=== PATIENT | female | born 1965 | race Two or more races ===

== ENCOUNTER 2017-09-13 11:15 | Emergency (ER) | payer OTHER ==
[2017-09-13 11:38] VITALS: BP 112/53; PULSE 111; TEMP 98.3; BMI 25.6
[2017-09-13] MEDS ORDERED: KETOROLAC TROMETHAMINE 60 MG/2 ML VIAL ONE (12:03)
--- NOTE | 2017-09-13 12:11 | PDOC ---
History of Present Illness - General Chief Complaint: Back Pain Stated Complaint: REVISIT/ BACK PAIN Time Seen by Provider: 09/13/17 11:42 - History of Present Illness Initial Comments: 09/13/17 12:06 CHIEF COMPLAINT: 52 y/o afebrile female with PMH IDDM, HTN, depression, chronic back pain with sciatica c/o worsened right sided back pain. HISTORY OF PRESENT ILLNESS: The patient states the right side of her back is in pain and it's radiating down her right leg. She reports that her pain mgmt doctor is Dr. Leighton Vivar and that she has an MRI scheduled in this hospital for 1 pm. She was given multiple pain medications but the only thing that helps her is Toradol. She denies recent/new fall/trauma to back, saddle anesthesia, bowel /bladder incontinence, numbness/tingling in LEs. Vital signs on arrival are notable for pulse of 99 and pulse ox of 96% on RA. REVIEW OF SYSTEMS: GENERAL/CONSTITUTIONAL: No fever/chills. No weakness. No weight change. GENITOURINARY: No dysuria, frequency, or change in urination. MUSCULOSKELETAL: +low back pain. No joint or muscle swelling or pain. No neck pain. SKIN: No rash or easy bruising. NEUROLOGIC: No headache, vertigo, loss of consciousness, or loss of sensation. PHYSICAL EXAM: GENERAL: The patient is awake, alert, and fully oriented, in no acute distress. She is ambulatory. BACK: No midline lumbar spine TTP or step offs. TTP of right lumbar paravertebral muscles. EXTREMITIES: Normal range of motion, no edema. NEUROLOGICAL: Normal speech, normal gait. CN II-XII grossly intact. No saddle anesthesia. Motor and strength equal b/l LEs. SKIN: Warm, dry, normal turgor, no rashes or lesions noted. Past History - Past Medical History Allergies/Adverse Reactions: Allergies Allergy/AdvReac Type Severity Reaction Status Date / Time No Known Allergies Allergy Verified 09/13/17 11:34 Home Medications: Ambulatory Orders Gabapentin 300 mg PO ASDIR 09/02/17 Glipizide 10 mg PO ASDIR 09/02/17 Insulin (Levemir) [Levemir Vial] 0 unit SQ DAILY 09/02/17 Insulin Lispro [Humalog] 100 unit SQ ASDIR 09/02/17 Insulin Lispro [Humalog] 100 unit SQ ASDIR 09/02/17 Metformin HCl [Metformin HCl ER] 1,000 mg PO ASDIR 09/02/17 Quetiapine Fumarate "Xr" [Seroquel Xr -] 400 mg PO DAILY 09/02/17 Quetiapine Fumarate [Seroquel -] 400 mg PO HS 09/02/17 Sertraline HCl [Zoloft -] 50 mg PO DAILY 09/02/17 Asthma: Yes COPD: No Diabetes: Yes HTN: Yes Psychiatric Problems: Yes (bipolar,schizophrenia) Other medical history: SCIATICA - Surgical History Abdominal Surgery: Yes (hernia) - Suicide/Smoking/Psychosocial Hx Smoking History: Current every day smoker Have you smoked in the past 12 months: Yes Number of Cigarettes Smoked Daily: 20 Information on smoking cessation initiated: No *Physical Exam - Vital Signs Last Vital Signs Temp Pulse Resp BP Pulse Ox 98.3 F 111 H 19 112/53 97 09/13/17 11:34 09/13/17 11:34 09/13/17 11:34 09/13/17 11:34 09/13/17 11:34 Medical Decision Making - Medical Decision Making 09/13/17 12:07 52 y/o afebrile female with PMH IDDM, HTN, depression, chronic back pain with sciatica c/o worsened right sided back pain. -60 mg Toradol Patient is to receive MRI in one hour and states she will follow up with MD Vivar , her pain mgmt doctor. Advised patient of signs and symptoms for return to ED. Patient verbalized understanding and agrees to plan. *DC/Admit/Observation/Transfer Diagnosis at time of Disposition: Chronic low back pain with right-sided sciatica - Discharge Dispostion Disposition: HOME Condition at time of disposition: Stable Admit: No - Referrals Referrals: Anh Delgado [Primary Care Provider] - Leighton Vivar MD [Staff Physician] - - Patient Instructions Printed Discharge Instructions: DI for Back Pain With Sciatica - Post Discharge Activity
== END 2017-09-13 12:13 | disposition home or self-care (01) ==
LOC: JERFT 11:15
DX: M54.31 Sciatica, right side (principal); G89.29 Other chronic pain; F17.210 Nicotine dependence, cigarettes, uncomplicated; J45.909 Unspecified asthma, uncomplicated; I10 Essential (primary) hypertension; F31.9 Bipolar disorder, unspecified
CPT/HCPCS: 99281-25

== ENCOUNTER 2017-09-27 07:46 | Day surgery (SDC) | payer OTHER ==
[2017-09-26 10:38] VITALS: BMI 25.6
[~2017-09-27 07:46] MED LIST: BETAMET ACET/BETAMET NA PH 30 MG/5 ML VIAL IM ONE; BUPIVACAINE HCL/PF 0.25% (2.5MG/ML) 10 ML VIAL IJ ONE; IOHEXOL 180 MG/1 ML ML IJ ONE; LIDOCAINE HCL 1%, 10 MG/ML (20ML VIAL) INF ONE
[2017-09-27 08:32] VITALS: TEMP 98.9
[2017-09-27] MEDS ORDERED: PROPOFOL 20 ML ONE (09:27)
[2017-09-27] MEDS ORDERED: LIDOCAINE HCL 1%, 10 MG/ML (20ML VIAL) INF ONE (09:57)
[2017-09-27] MEDS ORDERED: IOHEXOL 180 MG/1 ML ML IJ ONE (09:58)
[2017-09-27] MEDS ORDERED: BETAMET ACET/BETAMET NA PH 30 MG/5 ML VIAL IM ONE (09:59)
[2017-09-27] MEDS ORDERED: BUPIVACAINE HCL/PF 0.25% (2.5MG/ML) 10 ML VIAL IJ ONE (09:59)
[2017-09-27 13:50] VITALS: BP 138/72; PULSE 88
--- NOTE | 2017-10-22 09:57 | PROC ---
Procedure Note Procedure: Date of service: 09/27/2017 Preoperative Diagnosis: Low back pain and lumbar radiculopathy on right Postoperative Diagnosis: Same Procedure Performed: Lumbar Epidural Steroid Injection (LESI) on Right L4-5 with dye under Fluoroscopy Anesthesia: Local / MAC Anesthesiologist: Procedure: I discussed with the patient in detail about the risks, benefits, and alternatives to treatment not only limited to infection, headache, numbness , weakness, and injury to nerves, blood vessels and muscles. The patient understood, agreed and signed the written consent. The patient was placed in the prone position with the head, abdomen and legs supported with the pillows. The lumbosacral area was prepped and draped with Betadine times three in a sterile fashion. Lumbar vertebrae were identified under the C-arm. At L4-5 level on the right side, 3 ml of 1 % Lidocaine was infiltrated into the skin and subcutaneous tissue. A 3 inch, #20 gauge Tuohy needle was advanced to the epidural space with loss of resistance technique under fluoroscopic guidance. Aspiration was negative for cerebrospinal fluid and blood. 2ml of Omnipaque ( radio-opaque dye) was injected to confirm the tip of the needle into epidural space and spread of dye. There was no CSF or vascular spread. The spread of dye was noted cranially and caudally on epidurogram. Aspiration was done again which was negative. A solution of 2.5 ml of Celestone, 2.5 ml of 0.25% Marcaine and a total of 5 ml was injected slowly. While Tuohy needle was withdrawn 2.0 ml of 1 % Lidocaine was infiltrated. Bleeding was checked. Betadine was wiped off. A sterile bandage was placed. The patient tolerated the procedure well. There were no immediate complications. The patient was transferred to the recovery room. The patient was observed for some time and discharged as per ASU criteria. The patient was told to apply ice at the injection site. Follow up appointment was given and also call my office at [phone]. If there is any problem, call my office or report to Emergency Room. Leighton Vivar M.D.
== END 2017-09-27 11:30 | disposition home or self-care (01) ==
LOC: JASU-SURG 07:46
PROVIDERS: ATTEND Physical Medicine & Rehabilitation
PROC: 3E0R33Z Introduction of Anti-inflammatory into Spinal Canal, Percutaneous Approach (ICD-10-PCS; 2017-09-27)
PROC: B01BYZZ Fluoroscopy of Spinal Cord using Other Contrast (ICD-10-PCS; 2017-09-27)
PROC: 3E0R3BZ Introduction of Anesthetic Agent into Spinal Canal, Percutaneous Approach (ICD-10-PCS; principal; 2017-09-27 09:00)
DX: M54.16 Radiculopathy, lumbar region (principal); M54.5 Low back pain
CPT/HCPCS: 76000-TC-FY; 82962; 84703

== ENCOUNTER 2020-06-02 12:12 | Emergency (ER) | payer OTHER ==
[2020-06-02 12:24] VITALS: TEMP 98.6; BMI 24.8
[2020-06-02 13:31] VITALS: BP 96/65; PULSE 82
[2020-06-02] MEDS ORDERED: KETOROLAC TROMETHAMINE 30 MG/1 ML VIAL IM ONE (14:46)
[2020-06-02] MEDS ORDERED: KETOROLAC TROMETHAMINE 30 MG/1 ML VIAL ONE (14:51)
== END 2020-06-02 15:04 | disposition home or self-care (01) ==
LOC: JER 12:12
PROC: 3E0233Z Introduction of Anti-inflammatory into Muscle, Percutaneous Approach (ICD-10-PCS; principal; 2020-06-02)
DX: M54.42 Lumbago with sciatica, left side (principal); G89.29 Other chronic pain
CPT/HCPCS: 99284-25